=== PATIENT | female | born 1960 | race Caucasian/White ===

== ENCOUNTER 2019-02-22 13:21 | Outpatient (REF) | payer OTHER, SELFPAY ==
--- NOTE | 2019-02-22 10:30 | PAPFT_PTH ---
PATIENT: Cherelle Cid LOC: NCN #:[id number] AGE/SX: 58/F ROOM: RE02/22/[address]: Leidy Aleman V : 1960 BED: DIS: 02/22/2019 SPEC #: [id number] RECD: 02/25/19 12:05 STATUS: SIMEON REFalvia #: [id number] MACIE: 02/22/19 10:[address]: Leidy Aleman V DEPT: [facility] Cytology RECD BY: Sarina Montenegro Tissues: 1 - CX/ENDOCX FOR PAP SMEARS Procedures: PAP THIN PREP/UVM Screening HPV DNA PROBE Comments: [id number]
== END 2019-02-22 13:41 ==
LOC: NCHCN 13:21
PROVIDERS: PCP Family Medicine; Visit Provider Family Medicine
DX: Z12.4 Encounter for screening for malignant neoplasm of cervix (principal); Z11.51 Encounter for screening for human papillomavirus (HPV); Z01.419 Encounter for gynecological examination (general) (routine) without abnormal findings
CPT/HCPCS: 88142; 87624

== ENCOUNTER 2019-02-26 01:11 | Outpatient (CLI) | payer OTHER, SELFPAY ==
--- NOTE | 2019-02-26 11:14 | DI.MAMMO_ITS ---
EXAM: MG MAMMO SCREENING CLINICAL HISTORY: SCREENING, Z12.31, [facility], Z00.00 TECHNIQUE: Mammograms were interpreted according to the usual protocol including computer analysis w [employer] CAD system, tomosynthesis and C-view imaging. COMPARISON: [id number] FINDINGS: The breasts are composed of heterogeneously dense tissue, which may obscure small masses, breast dens ity category C. There are no dominant masses or microcalcifications. There is no significant interva l change in comparison with the previous examinations. IMPRESSION: Category 1, negative mammogram. Yearly screening mammography is recommended. BI-RADS Cat 1 - Negative Breast Density - Category C - Heterogeneously dense
--- NOTE | 2019-02-26 11:39 | DI.RAD_ITS ---
EXAM: XR CERVICAL SPINE COMP 4-5V INDICATION: CERVICAGLIA, M54.2, HEADACHE, R51. COMPARISON: No exams were available for comparison TECHNIQUE: 2D digital imaging was performed. FINDINGS: The C2-3, C3-4 and C4-5 discs are well maintained. There is moderate loss of disc height and endplat e osteophytes at C 5-6. The C6-7 disc space is well maintained. There is some facet joint spurring as well as uncovertebral joint spurring causing neural foraminal narrowing on the left at C5-6 and on the right at C3-4, C5-6 and C6-7. There is some straightening of the normal cervical lordosis secon javid to degenerative changes. The airway appears intact. IMPRESSION: There are degenerative changes greatest at its C5-6 causing bilateral neural foraminal narrowing.
== END 2019-02-26 01:31 ==
PROVIDERS: PCP Family Medicine; Visit Provider Family Medicine
DX: M54.2 Cervicalgia (principal); R51 Headache; M50.322 Other cervical disc degeneration at C5-C6 level; Z12.31 Encounter for screening mammogram for malignant neoplasm of breast; Z00.00 Encounter for general adult medical examination without abnormal findings
CPT/HCPCS: 77063; 77067; 72050

== ENCOUNTER 2020-02-27 12:55 | Outpatient (REF) | payer OTHER, SELFPAY ==
--- NOTE | 2020-02-27 08:45 | PAPFT_PTH ---
PATIENT: [facility]here[facility]id [id number] AGE/SX: 59/F ROOM: RE02/27/[address]: Leidy Aleman V : 1960 BED: DIS: 02/27/2020 SPEC #: [id number] RECD: 02/27/20 18:24 STATUS: SIMEON REQ #: [id number] MACIE: 02/27/20 08:[address]: Leidy Aleman V DEPT: [facility] Cytology RECD BY: Rubia Rangel Tissues: 1 - CX/ENDOCX FOR PAP SMEARS Procedures: PAP THIN PREP/UVM Screening HPV DNA PROBE Comments: [id number] ([id number] [facility])
[2020-02-27 20:17] LABS: Calculated LDL 138 mg/dL (<100); Cholesterol 206 mg/dL (<200); Glucose 80 mg/dL (74-106); HDL Cholesterol 48 mg/dL (40-60); Triglyceride 104 mg/dL (<150)
== END 2020-02-27 13:15 ==
LOC: NCHCN 12:55
PROVIDERS: PCP Family Medicine; Visit Provider Family Medicine
DX: Z00.00 Encounter for general adult medical examination without abnormal findings (principal); Z13.220 Encounter for screening for lipoid disorders; Z13.1 Encounter for screening for diabetes mellitus; Z12.4 Encounter for screening for malignant neoplasm of cervix; Z11.51 Encounter for screening for human papillomavirus (HPV)
CPT/HCPCS: 80061; 82947; 88142; 87624

== ENCOUNTER → 2021-07-27 00:39 | Outpatient (CLI) | payer OTHER, SELFPAY ==
--- NOTE | 2021-07-27 07:30 | DI.MAMMO_ITS ---
Exam(s) MAMMO SCREENING EXAM: MAMMO SCREENING CLINICAL HISTORY: SCREENING, Z12.31. TECHNIQUE: Bilateral full field digital CC and MLO mammographic images were obtained with 3D tomosyn thesis and utilizing computer aided detection (CAD). COMPARISON: Prior mammograms were reviewed, the most recent being February 2019. FINDINGS: The fibroglandular tissue pattern is again noted be moderately dense, this somewhat decreasing the se nsitivity of the mammogram for finding hidden underlying lesions. Asymmetric density medially in the right breast exhibits minimal change from prior studies. In addit ion, asymmetric density in the left breast best seen on the MLO view also appears unchanged from prio r mammograms dating back to at least 2011. There are no new spiculated masses nor malignant appearing microcalcification groups. There is no significant architectural distortion nor skin thickening-retraction. IMPRESSION: Dense bilateral fibroglandular tissue. Stable benign-appearing findings. No obvious radiographic ev idence of malignancy. BI-RADS Category 2 - Benign Findings Breast Density - Category C - Heterogeneously dense Breast density Category C or D implies that the patient has dense breast tissue. Dense breast tissue can make it harder to find cancer on a mammogram. Dense breast tissue is also associated with an incr eased risk of breast cancer. This information about the result of the mammogram report was provided to the patient to raise their awareness. Use this report when you speak with the patient about their risks for breast cancer, which includes their family history. At that time, you may recommend additional screening tests (Ultrasoun d or MRI) as these tests may add significant information. A negative radiographic report should not delay biopsy if a dominant or clinically suspicious mass is present. Up to ten percent of cancers are not identified on mammography. A negative report may reinforce clinical impression. Adenosis and dense breasts may obscure an underlying neoplasm. False positive reports average 6 to 10%. Patient will receive a letter notifying them of these results.
== END ==
PROVIDERS: PCP Family Medicine; Visit Provider Family Medicine
DX: Z12.31 Encounter for screening mammogram for malignant neoplasm of breast (principal); N60.81 Other benign mammary dysplasias of right breast; N60.82 Other benign mammary dysplasias of left breast
CPT/HCPCS: 77063; 77067

== ENCOUNTER 2021-09-17 06:05 | Emergency (ER) | payer OTHER, SELFPAY ==
[2021-09-17 06:08] VITALS: BP 137/75; PULSE 86; RESP 18; TEMP 36.6; O2SAT 100
--- NOTE | 2021-09-17 06:56 | ED.GENADUL_ITS ---
Discharge Plan Disposition Patient Disposition: STILL A PATIENT Condition: Serious Discharge Details Chief Complaint: FlankPain Clinical Impression: Acute left flank pain Primary Care Provider: Leidy Aleman V ED Provider: Constantin Goldberg Home Meds and New Rx's Prescriptions: No Action No Known Home Meds Medical Decision Making 700 --61-year-old female with history of remote renal stone as a child here with left flank pain that started yesterday afternoon and has persisted. Patient does have mild left CVA tenderness. She has no urinary symptoms. Consider renal stone versus pyelonephritis. Will obtain urinalysis and plan for likely CT of the abdomen and pelvis. I offered analgesic and patient declined. -- Urinalysis reviewed and trace hematuria noted. Please obtain CT of the abdomen pelvis to assess for acute surgical pathology including obstructing stone. HPI General Mode of arrival: ambulatory . Date/Time Provider Initiated Documentation: 09/17/21 06:07 . Limitations to Documentation: no limitations . Information obtained by: patient . HPI Narrative: 61-year-old female presents with chief complaint of left flank pain. Patient notes left flank pain started around 5 PM yesterday. Pain has persisted and was moderate to severe last night. She had difficulty sleeping. Pain feels like an ache. Patient denies associated dysuria or hematuria. She has had a small kidney stone as a child with no recurrence. Patient does not recall any injury. Related Data Home Medications Medication Instructions Recorded Confirmed Unknown [No Known Home Meds] 09/17/21 09/17/21 Allergies Allergy/AdvReac Type Severity Reaction Status Date / Time No Known Drug Allergies Allergy Unverified 09/17/21 06:19 General Stated Complaint: FlankPain IMTIAZ: 3 Review of Systems All systems reviewed & are unremarkable except as noted in HPI and below Constitutional Constitutional: Denies fever(s) Genitourinary Genitourinary: Reports as per HPI PFSH All Active Problems (Updated 09/17/21 @ 07:22 by Constantin Goldberg MD) Acute left flank pain (Acute) Family History Other Family history of stroke Parkinson's disease Social History Smoking/Tobacco Use Status: Never Smoking risk assessment performed?: Yes Alcohol Intake: current Alcohol Intake frequency: a few times a month Drug use: Never Exam Const General: cooperative and no acute distress HENMT Mouth: moist mucous membranes Eyes Conjunctivae: normal conjunctivae Sclera: normal sclerae Neck Neck: trachea midline and supple Resp Auscultation: clear to auscultation bilaterally, no rales, no rhonchi and no wheezes Cardio Rate: regular rate and not tachycardic Rhythm: regular rhythm GI Palpation: soft, not firm, no guarding, no masses, not rigid and nontender Back/Spine/Pelvis Back: CVA tenderness (left) Thoracic/Lumbar Spine: No paraspinal tenderness, No thoracic spinal tenderness and No lumbar spinal tenderness Skin General skin exam: no rashes or lesions noted Neuro General: patient alert, patient awake and tone normal Extrem General: no edema Psych Mental Status: mental status grossly normal Course Vital Signs Vital signs: Vital Signs Temperature 36.6 C 09/17/21 06:08 Pulse 86 09/17/21 06:08 Respiratory Rate 18 09/17/21 06:08 Blood Pressure 137/75 09/17/21 06:08 Pulse Oximetry 100 09/17/21 06:08 Temperature 36.6 C 09/17/21 06:08 Temperature Source Temporal Artery Scan 09/17/21 06:08 Pulse 86 09/17/21 06:08 Respiratory Rate 18 09/17/21 06:08 Respiratory Effort 09/17/21 06:27 Blood Pressure 137/75 09/17/21 06:08 Pulse Oximetry 100 09/17/21 06:08 Oxygen Delivery Method Room Air 09/17/21 06:08 Oxygen Flow Rate 0 09/17/21 06:08 Pain Level 7 09/17/21 06:08
[2021-09-17 07:02] LABS: Bilirubin Negative (Negative); Blood Trace-intact (Negative); Clarity Clear (Clear); Glucose Negative (Negative); Ketones Negative (Negative); Leukocyte Esterase Small (Negative); Nitrite Negative (Negative); Specific Gravity >= 1.030 (1.005-1.025); Urobilinogen 0.2 EU/dL (Up TO 0.2)
[2021-09-17 07:10] LABS: RBC 0-2 HPF (0-2)
[2021-09-17 07:11] LABS: Bacteria Rare HPF (Negative); C & S Indicated? Yes; Casts Negative LPF (Negative); Crystals Negative HPF (Negative); Epithelial Cells Few HPF (Negative); Mucus Negative (Negative)
[2021-09-17] MEDS: Ibuprofen 600 MG TAB PO (07:28)
--- NOTE | 2021-09-17 07:36 | DI.CT_ITS ---
Exam(s) CT RENAL COLIC WO EXAM: CT RENAL COLIC WO CLINICAL HISTORY: left flank pain and cva tenderness. TECHNIQUE: Imaging Protocol: Axial computed tomography images with coronal and sagittal reformatted images were created and reviewed. COMPARISON: No exams were available for comparison FINDINGS: ABDOMEN: Lung Bases: Normal where visualized. Liver: Normal density. No measurable mass. Gallbladder and biliary tract: No radiodense calculus or biliary ductal dilation. Pancreas: Normal density, no abnormal calcifications or inflammatory process. Spleen: Normal. Kidneys: Normal size, contour and axis.No radiodense stones or obstructive uropathy. There is a 4 mm fat density lesion in the midpole of the right kidney most consistent with a angiomyolipoma. Adrenal glands: No mass is seen. Lymph nodes: There are mildly prominent lymph nodes seen in the mesentery with haziness in the surrou nding fat. Abdominal Aorta: Abdominal portion non-dilated. Atherosclerosis. PELVIS: Bladder:Symmetric distention, no gross wall thickening. Bowel: No obstruction or bowel wall thickening. No evidence of appendicitis. Peritoneal cavity: No ascites, collection or mesenteric inflammatory response. No free air. Reproductive organs: Within normal limits. Bones: Within normal limits. Soft Tissues: There is a small fat containing umbilical hernia. There is a fat density 9.2 cm x 3.1 cm mass in the left anterior abdominal wall consistent with a lipoma. IMPRESSION: 1. No evidence of nephrolithiasis or hydronephrosis. 2. Findings of haziness of the mesentery with mildly prominent lymph nodes. This can be seen with a local a infectious or inflammatory process. A neoplastic process cannot be excluded. Follow-up exam ination in 3-4 months is suggested for re-evaluation. RADIATION DOSE DELIVERED: 878.34mGy.cm Total DLP DATA REPOSITORY: All CT scans at this facility are submitted to the National Radiology Data Registry (NRDR) Dose Index Registry (DIR) with the [employer] (ACR). RADIATION OPTIMIZATION: All CT scans at this facility use at least one of these dose optimization te chniques: automated exposure control; mA and/or kV adjustment per patient size (includes targeted exa ms where dose is matched to clinical indication); or iterative reconstruction.
--- NOTE | 2021-09-17 08:39 | DI.VRAD_ITS ---
PROCEDURE INFORMATION: Exam: CT Abdomen And Pelvis Without Contrast Exam date and time: 09/17/2021 7:32 AM Age: 61 years old Clinical indication: Abdominal pain; Patient HX: Left flank pain and CVA tenderness TECHNIQUE: Imaging protocol: Computed tomography of the abdomen and pelvis without contrast. Radiation optimization: All CT scans at this facility use at least one of these dose optimization techniques: automated exposure control; mA and/or kV adjustment per patient size (includes targeted exams where dose is matched to clinical indication); or iterative reconstruction. COMPARISON: No relevant prior studies available. FINDINGS: Lungs: Visualized lung bases are clear. No pleural effusions. Liver: The superior aspect of the liver is excluded from the field of view on this study performed for evaluation of renal colic. The unenhanced liver is unremarkable as visualized. Gallbladder and bile ducts: Unremarkable. No calcified gallstones. No intrahepatic or extrahepatic biliary ductal dilation. Pancreas: Unremarkable. Spleen: Unremarkable. The spleen is normal in size. Adrenal glands: Unremarkable. Kidneys and ureters: There is no hydronephrosis or hydroureter. No calcifications are identified in the kidneys or ureters. 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 Stomach and bowel: The stomach is nondilated. The small and large bowel are normal in caliber, without mural thickening. Appendix: A nondilated retrocecal appendix is identified. Intraperitoneal space: No ascites, fluid collection, or pneumoperitoneum. Retroperitoneal space: Unremarkable. No retroperitoneal collection or mass. Vasculature: Mild atherosclerotic vascular calcifications. Normal caliber abdominal aorta. Lymph nodes: There are multiple asymmetrically prominent (though not pathologically enlarged) mesenteric lymph nodes in the left hemiabdomen, with diffuse mild haziness of the surrounding mesenteric fat which extends into the root of the mesentery. While nonspecific, these findings are most typically secondary to an underlying regional infectious or inflammatory process. This gerardo mesentery appearance can be an early manifestation of a neoplastic process, however. Urinary bladder: Unremarkable. No intraluminal calcifications. Reproductive: Unremarkable as visualized. Bones/joints: Degenerative changes. No suspicious osseous lesions. Soft tissues: 6.7 cm CC x 3 cm AP x 9 cm TRV subcutaneous lipoma in the left upper quadrant abdominal wall. Tiny fat-containing umbilical hernia. IMPRESSION: 1. No evidence of urolithiasis or obstructive uropathy. 2. Gerardo mesentery, with multiple asymmetrically prominent mesenteric lymph nodes in the left hemiabdomen and surrounding haziness of the mesenteric fat. While nonspecific, this appearance is most typically secondary to an underlying regional infectious or inflammatory process. Gerardo mesentery can be an early manifestation of a neoplastic process, however, and follow-up CT (i.e., 3-4 months) is recommended to ensure stability or resolution. 3. Additional incidental/nonemergent findings are discussed in the body of the report. Dictated and Authenticated by: Jessy Gomez MD. Ordering:MEERA Killian MD
--- NOTE | 2021-09-17 09:13 | W.EDPROG ---
Date of service: 09/17/21 Time of Service: 09:13 Medical Decision Making 9: 12 patient resting comfortably no acute distress. No evidence of kidney stone. Incidental mesenteric findings as described on CT. As well as mildly enlarged lymph nodes intra-abdominally. Counseled patient regarding need for close follow-up regarding the CT findings. No definitive UTI, patient does not have any dysuria urinary frequency or foul-smelling urine. No nausea vomiting or chills. Counseled extensively regarding signs that would alert her to come back to the emergency department. We will follow-up with her primary care physician regarding incidental findings on CT. Sign Out Sign Out Data: Sign Out Comment: Follow-up on CT of the abdomen pelvis and reassess for disposition. Last updated by Constantin Goldberg MD at 09/17/21 07:24 Discharge Plan Disposition Patient Disposition: HOME Condition: Improving Discharge Details Clinical Impression: Acute left flank pain, Lymphadenopathy, Abdominal pain Primary Care Provider: Leidy Aleman V ED Provider: Roddy Hall Home Meds and New Rx's Prescriptions: No Action No Known Home Meds Discharge Instructions Instructions: Abdominal Pain (ED) Additional Instructions: Please follow-up with your primary care physician regarding the findings on your CT scan which showed enlarged lymph nodes and inflammation of your mesentery. Please return to the emergency department if you have any worsening abdominal pain, nausea vomiting chills urinary symptoms or other abnormal symptoms.
== END 2021-09-17 09:36 | disposition home or self-care (01) ==
PROVIDERS: Student in an Organized Health Care Education/Training Program; Emergency Provider Emergency Medicine; PCP Family Medicine
DX: R10.9 Unspecified abdominal pain (principal); R59.0 Localized enlarged lymph nodes; Z87.442 Personal history of urinary calculi
CPT/HCPCS: 99284; 74176; 81003; 81015; 87086; 99283

== ENCOUNTER 2021-09-24 09:18 | Outpatient (REF) | payer OTHER, SELFPAY ==
[2021-09-24 14:55] LABS: Abs Immature Grans 0.02 10^3/uL (0.0-0.06); Absolute Basophil Count 0.02 10^3/uL (0.0-0.2); Absolute Eosinophil Count 0.11 10^3/uL (0.0-0.7); Absolute Lymphocyte Count 1.89 10^3/uL (1.2-3.4); Absolute Monocyte Count 0.36 10^3/uL (0.1-0.8); Absolute Neutrophil Count 3.81 10^3/uL (1.2-6.7); Basophils % 0.3; Eosinophils % 1.8; HCT 42.9 % (36.0-46.0); HGB 13.8 g/dL (11.2-15.7); Immature Grans % 0.3; Lymphocytes % 30.4; MCH 28.5 pg (27.0-33.0); MCHC 32.2 % (32.0-36.0); MCV 89 fL (80-95); MPV 10.6 fL (8.0-11.0); Monocytes % 5.8; Neutrophils % 61.4; Platelet Count 258 10^3/uL (130-400); RBC 4.84 10^6/uL (3.93-5.22); RDW-SD 39.1 fL; WBC 6.21 10^3/uL (4.4-10.8)
[2021-09-24 15:10] LABS: ESR 5 mm/hr (0-30)
[2021-09-26 09:35] LABS: Anaplasma phagocytophilum Negative (Negative); B. miyamotoi PCR Negative (Negative); Babesia divergens/MO-1 Negative (Negative); Babesia duncani Negative (Negative); Babesia microti Negative (Negative); Ehrlichia chaffeensis Negative (Negative); Ehrlichia ewingii/canis Negative (Negative); Ehrlichia muris eauclairensis Negative (Negative)
[2021-09-28 10:45] LABS: Lyme Ab w Rflx to Lyme Confirm Equivocal (Negative)
[2021-09-28 12:24] LABS: Lyme IgG Ab Negative (Negative); Lyme IgM Ab Negative (Negative)
== END 2021-09-24 09:19 | disposition home or self-care (01) ==
LOC: NCHCN 09:18
PROVIDERS: PCP Family Medicine; Visit Provider Nurse Practitioner Family
DX: I88.0 Nonspecific mesenteric lymphadenitis (principal); R10.9 Unspecified abdominal pain; M79.10 Myalgia, unspecified site
CPT/HCPCS: 85652; 86617; 87798; 85025; 86618; 87086

== ENCOUNTER 2021-10-26 19:31 | Outpatient (REF) | payer OTHER, SELFPAY ==
[2021-10-27 10:47] LABS: Lyme Ab w Rflx to Lyme Confirm Negative (Negative)
== END 2021-10-26 19:32 | disposition home or self-care (01) ==
LOC: NCHCN 19:31
PROVIDERS: PCP Family Medicine; Visit Provider Family Medicine
DX: A69.20 Lyme disease, unspecified (principal)
CPT/HCPCS: 86618

== ENCOUNTER → 2023-08-01 01:57 | Outpatient (CLI) | payer OTHER, SELFPAY ==
--- NOTE | 2023-08-01 | DI.MAMMO_ITS ---
Exam(s) MAMMO SCREENING EXAM: MAMMO SCREENING CLINICAL HISTORY: Z12.31 Screening mammogram for malignant neoplasm of breast. TECHNIQUE: Bilateral full field digital CC and MLO mammographic images were obtained with 3D tomosyn thesis and utilizing computer aided detection (CAD). COMPARISON: Prior mammograms were reviewed. FINDINGS: There has been no significant change in the appearance and distribution of the fibroglandular tissue. There are no CAD designations. There are no new spiculated masses nor malignant appearing microcalcification groups. No new right breast findings. In the left breast asymmetric densities including a E 7 by 4 mm nodula r density seen superiorly on the MLO view is unchanged from prior mammograms and therefore benign. There is no significant architectural distortion nor skin thickening-retraction. IMPRESSION: Stable benign findings. No radiographic evidence of malignancy. BI-RADS Category 2 - Benign Findings Breast Density - Category C - Heterogeneously dense Breast density Category C or D implies that the patient has dense breast tissue. Dense breast tissue can make it harder to find cancer on a mammogram. Dense breast tissue is also associated with an incr eased risk of breast cancer. This information about the result of the mammogram report was provided to the patient to raise their awareness. Use this report when you speak with the patient about their risks for breast cancer, which includes their family history. At that time, you may recommend additional screening tests (Ultrasoun d or MRI) as these tests may add significant information. A negative radiographic report should not delay biopsy if a dominant or clinically suspicious mass is present. Up to ten percent of cancers are not identified on mammography. A negative report may reinforce clinical impression. Adenosis and dense breasts may obscure an underlying neoplasm. False positive reports average 6 to 10%. Patient will receive a letter notifying them of these results.
== END ==
PROVIDERS: PCP Family Medicine; Visit Provider Family Medicine
DX: Z12.31 Encounter for screening mammogram for malignant neoplasm of breast (principal)
CPT/HCPCS: 77063; 77067

== ENCOUNTER 2024-02-20 15:16 | Outpatient (CLI) | payer OTHER, SELFPAY ==
--- NOTE | 2024-02-20 09:00 | DI.RAD_ITS ---
Exam(s) XR SHOULDER RT COMPLETE 2+V EXAM: XR SHOULDER RT COMPLETE 2+V CLINICAL HISTORY: RIGHT SHOULDER PAIN. TECHNIQUE: 2D digital imaging was performed. Two views. COMPARISON: No exams were available for comparison FINDINGS: BONES: No acute fracture is present. No bony destructive lesion is seen. Spurring at greater tuberos ity peer JOINTS: No dislocation present. Mild spurring at AC joint and undersurface of acromion. Glenohumera l joint space is maintained. Mild spurring is noted at the glenoid. SOFT TISSUE: Normal. IMPRESSION: Mild degenerative changes. DATA REPOSITORY: RADIATION DOSE DELIVERED:
== END 2024-02-20 15:17 | disposition home or self-care (01) ==
LOC: DIORS 15:16
PROVIDERS: PCP Family Medicine; Visit Provider Student in an Organized Health Care Education/Training Program
DX: M25.511 Pain in right shoulder (principal)
CPT/HCPCS: 73030

== ENCOUNTER 2024-03-08 10:45 | Outpatient (CLI) | payer OTHER, SELFPAY ==
--- NOTE | 2024-03-08 08:30 | DI.MRI_ITS ---
Exam(s) MR UPPER JOINT RT WO EXAM: MR UPPER JOINT RT WO CLINICAL HISTORY: R SHOULDER PAIN, M75.101-Rt rotator cuff tear. TECHNIQUE: Multiplanar multisequence MRI was performed. COMPARISON: CR XR SHOULDER RT COMPLETE 2+V from 02/20/2024 FINDINGS: There is mild motion artifact. BONES: There is no fracture or contusion pattern. There is a small spur at the undersurface of the ac romion. JOINTS: Minimal degenerative changes are seen at the acromioclavicular joint. The glenohumeral joint is normal. TENDONS: Supraspinatus: There is a full-thickness tear of the supraspinatus tendon near its insertion site ant eriorly. There is underlying tendinosis present. Infraspinatus: Unremarkable. Subscapularis: Unremarkable. Teres Minor: Unremarkable. Biceps and [place]: Unremarkable. MUSCLES: Unremarkable. GLENOID LABRUM: Unremarkable on this noncontrast examination. SOFT TISSUES: Unremarkable. LIGAMENTS: Unremarkable. OTHER: There is fluid seen in the subacromial subdeltoid bursa consistent with the patient's full-thi ckness tear. IMPRESSION: 1. Small full-thickness tear of the supraspinatus tendon near its insertion site anteriorly. 2. Small spur at the undersurface of the acromion. DATA REPOSITORY:
== END 2024-03-08 11:05 ==
LOC: DI 10:50
PROVIDERS: PCP Family Medicine; Visit Provider Student in an Organized Health Care Education/Training Program
DX: M75.111 Incomplete rotator cuff tear or rupture of right shoulder, not specified as traumatic (principal)
CPT/HCPCS: 73221

== ENCOUNTER 2024-03-29 06:13 | Day surgery (SDC) | payer OTHER, SELFPAY ==
[2024-03-29] VITALS (32 sets, daily range): BP systolic 109–163; BP diastolic 62–94; PULSE 64–87; RESP 13–22; TEMP 36–36.7; O2SAT 96–99; BMI 26.5
[2024-03-29] MEDS: Normal Saline 1,000 ML 30 ML IV (07:00)
--- NOTE | 2024-03-29 07:06 | PDOC.DSDIS_ITS ---
Date of service: 03/29/24 Discharge Plan Disposition Patient Disposition: Home Condition: Stable Discharge Details Attending Provider: Augustus Cardoza Primary Care Provider: Leidy Aleman V Home Meds and New Rx's Prescriptions: New naproxen 250 mg tablet 250 - 500 mg PO BID PRN (Reason: moderate pain and swelling) Qty: 40 0RF oxycodone 5 mg tablet 5 - 10 mg PO .q4-6h MDD 30 mg PRN (Reason: severe pain) Qty: 18 0RF Continued cholecalciferol (vitamin D3) 25 mcg (1,000 unit) capsule 25 mcg PO DAILY ascorbic acid (vitamin C) 1,000 mg capsule 1 g PO DAILY Discharge Instructions Additional Instructions: Surgery: Right shoulder arthroscopy with rotator cuff repair (medial trans- tendinous supraspinatus), biceps tenodesis, extensive debridement, and subacromial decompression. Activity: For 6 weeks, you should keep your arm at your side in a neutral position at all times except for physical therapy. Do not try to lift or raise your arm using your own muscles. You should use the sling whenever you are out of the house. At home it is best to remove the sling and rest the arm on a pillow at your side or support the operative side with your other hand. You may allow the arm to dangle at your side. A physical therapy prescription will be sent electronically to begin in about 3 weeks. CONSERVATIVE protocol. Prescriptions: Naproxen 250 mg take 1-2 every 12 hours with a meal as needed for moderate pain Oxycodone 5 mg take 1-2 every 4-6 hours as needed for severe pain You may use tunr-fje-gzydbfi Tylenol (acetaminophen) as needed for mild pain. These pain medications may be taken all at once or in different combinations as needed. Also, recommend Colace (docusate) as a stool softener as surgery and pain medicine cause constipation. You may try rmek-otf-fhsigun diphenhydramine (Benadryl) 25-50 mg nightly as a sleep aid Dressings: Remove shoulder bandage after 3 days. Leave the sticky Steri-Strips in place until they fall off or remove them after you shower. Cover the incisions with Band-Aids or leave them open to air. You may shower after 5 days. Follow-up: 10-[address] Cardoza You may take off the leg compression stockings this evening at home. You may also leave them on a few days longer if you have a history of leg swelling or edema. Let us know right away if you develop any redness, drainage, fevers, chest pain, or trouble breathing. Do not drink alcohol or drive for at least 24 hours after anesthesia. Please call the office during business hours with any questions or concerns. Discharge Orders Discharge Orders: Discharge Order (Routine); Ordered 03/29/24 Ordered By: Sheela Cabezas DS: Diagnosis Discharge Diagnosis (1) Rotator cuff tear, right: Status: Acute (2) Tendonitis of long head of biceps brachii of right shoulder: Status: Acute (3) Chondromalacia of right shoulder: Status: Acute
--- NOTE | 2024-03-29 07:16 | W.PM.OP ---
Operative Note Operative Note PRE-OP DIAGNOSIS: Right: 1. Rotator cuff tear 2. Bursitis 3. Impingement POST-OP DIAGNOSIS: same Right: 1. Rotator cuff tear 2. Intra-articular biceps partial tearing 3. Shoulder stiffness PROCEDURE: Right: 1. Rotator cuff repair, CPT# 86066. This involved repair of the supraspinatus using sutures and anchors to reapposed the ends of the tendon and secure it to the proximal humerus 2. Arthroscopic biceps tenodesis, CPT# 48865. This involved arthroscopically suturing and reattaching the long head of the biceps tendon to the proximal humerus at the superior margin of the bicipital groove with a screw at the correct tension. 3. Extensive debridement, CPT# 86209. This involved using arthroscopic hand instruments, power instruments, and radiofrequency instruments to release the long head of the biceps tendon and debride areas of labral tearing, synovitis, release anterior capsule, and debride chondromalacia about the central glenoid working within the glenohumeral joint anteriorly, superiorly and posteriorly. 4. Subacromial decompression with partial acromioplasty, CPT# 10564. This involved using arthroscopic power instruments and a radiofrequency wand to complete a bursectomy and smooth the undersurface of the acromion. The case management assistant was medically required in order to help assist in techniques above, which require positioning the arm, holding the arthroscope, and manipulating multiple instruments and sutures at the same time. This cannot be done without the help of an experienced case management assistant. SURGEON: Augustus Cardoza TAPPER SUPERVISOR: Sheela Cabezas ANESTHESIA TYPE: Local By Surgeon, General LMA/ETT and Primary Nerve Block Refer to Anesthesia Record ESTIMATED BLOOD LOSS: 5 PATHOLOGY: none sent COMPLICATIONS: None Patient was transported to: PACU Patient's condition: stable Implants: Arthrex: 4.75mm SwiveLocks x 3 Indications: The patient was diagnosed with the above conditions and appropriately indicated for surgical intervention. Please see complete medical record for details. Findings: Exam under anesthesia: Mildly limited forward elevation and abduction external rotation, readily released and restored simply on exam. No instability. Glenohumeral joint: Obvious anterior inferior capsular synovitis and hemorrhage from mild release. Thickened anterior capsule [facility] L was some adhesions to the subscapularis. Subscapularis otherwise completely intact. Full-thickness complete supraspinatus medial transtendinous tear with delaminated layers and thickening tendinosis centrally and posteriorly. Moderate central glenoid chondromalacia. Mild partial tearing intra-articular biceps which appeared to abrade the superior aspect of the bicipital groove and mild degenerative superior labrum SLAP tear. Subacromial space: Moderate bursitis, mild undersurface acromial narrowing, obvious complete supraspinatus delaminated medial tendon tearing. Procedure Description: In the operating room, general anesthesia was induced. Bilateral shoulders were examined. The patient was positioned in the beachchair position. All bony prominences were well-padded. Preoperative antibiotics were administered. The shoulder was prepped and draped in the usual sterile fashion. The correct patient, procedure, and side of the procedure were all verified prior to incision. Starting through the posterior portal a standard complete diagnostic arthroscopy was performed of the glenohumeral joint including inspection of the long head of the biceps, anterior and superior labrum, subscapularis tendon, supraspinatus and infraspinatus tendons, and axillary recess. The glenoid and humeral head cartilage as well as the posterior labrum were inspected from an anterior viewing portal. An anterior superior lateral portal was made and Brittany passport inserted working through the full-thickness supraspinatus tear. Significant findings and interventions noted above. Of note, the anterior capsule and [facility] were released using scissors debrided with a shaver and finally the radiofrequency wand to complete release for range of motion and remove adhesions from the subscapularis and anterior space. Anterior to inferior labrum and central glenoid was debrided of the fraying tearing and lightly chondromalacia loose cartilage edges. The intra-articular biceps segment was inspected and probed and showed partial tearing in combination with a degenerative SLAP tear decision was made to proceed with biceps tenodesis. An all-arthroscopic suprapectoral biceps tenodesis was performed through an anterior portal using a Loop N Tack method with a SutureTape FiberLink cinched around and through the tendon. The biceps was tenotomized from the labrum and fixated with a suture anchor at the superior margin of the bicipital groove. The extra knotless repair suture was then passed around the biceps tendon stump, shuttled back through the anchor and tension adding nice additional security to the repair, which was tested and stable. The end of the tendon was then ablated. Starting through the posterior portal, the arthroscope was directed into the subacromial space. A lateral 50 yard line lateral portal was created and Brittany cannula inserted. A combination of power instruments and a radiofrequency ablator were used to debride bursitis anteriorly, posteriorly, and laterally as well as expose and smooth bone spurring on the undersurface of the acromion. The coracoacromial ligament was partially released. The bursectomy was completed viewing laterally and working from posteriorly and the rotator cuff was thoroughly inspected with findings noted above. The supraspinatus tendon tear was largely medial to the greater tuberosity footprint as expected given the imaging. There was significant tendon remnant across covering the greater tuberosity. Viewing through the joint and working through subacromial the central portion of the tear was debrided of degenerative frayed various layers to a more stable appropriate tissue margin for repair. A small amount of humeral head cartilage and greater tuberosity cartilage was removed to expose some greater tuberosity bone healing under the tear zone given the high risk tear pattern. Various repair configurations were considered: [id number] tendon repair to the intact remnant was not strong enough anteriorly and the large tendon remnant was fairly healthy and thompson centrally to posteriorly so taking it all down was not a good option either. Instead there was nice reapposition of the medial to lateral remnant tendon edges by simply bringing the tendon central portion laterally without much tension. The scorpion is used to place an inverted widely spaced horizontal mattress followed by central ripstop suture tape FiberLink and these could be secured to a cleared area on the lateral central proximal humerus past the greater tuberosity drop-off. This also reapposed the more anterior and posterior gaps in the tendon. The undersized punch was used followed by securing the repair sutures and tendon taking care to ensure the best reduction without over tension. There was good tissue reduction and stable repair strength. The smaller Within the tendon more posteriorly was readily repaired [id number] using the 9 degree lasso and suture tape SMC arthroscopic knots. Anteriorly the [id number] was not possible as the lateral remnant thinner tissue could not hold sutures so instead the scorpion was used to place 2 additional suture tape FiberLink's cinched to the free tendon edge and then secured to an additional lateral 4.75 mm SwiveLock anchor. The repair was tested and demonstrated good configuration, excellent re-apposition of tendon edges, and stable through motion. The shoulder was drained of arthroscopic fluid. All portal sites were copiously irrigated. These incisions were closed using 3-0 Monocryl in a buried fashion and then covered with Mastisol, Steri-Strips, Xeroform, dry gauze, and ABDs. The dressings were covered and secured with Medipore tape. The operative extremity was placed into a sling for immobilization. The patient awoke from anesthesia without complication and was transferred to the recovery room in a stable condition. Date of Procedure: 03/29/24
[2024-03-29] MEDS: ceFAZolin 2 GM/50 ML BAG IVPB (07:49)
[2024-03-29] MEDS: TRANEXAMIC ACID/SOD. CHL. 1,000 MG/100 ML BAG 600 MG IVPB (08:04)
--- NOTE | 2024-03-29 08:19 | ANES.PREOP_ITS ---
General Info Date of Service Date Performed: 03/29/24 Height: 5 ft 6.5 in Weight: 75.7 kg Body Mass Index (BMI): 26.5 Surgical Procedure: Operation Date: 03/29/24 07:40 Proposed Procedure Side Surgeon p Shoulder Rotator Cuff Arthroscopic w/Extensive Debridement, Possible Biceps Tenodesis, Subacromial Decompression, Possible Allograft Augmentation Right Augustus Cardoza MD Actual Procedure Side Surgeon p Shoulder Rotator Cuff Arthroscopic w/Extensive Debridement, Possible Biceps Tenodesis, Subacromial Decompression, Possible Allograft Augmentation Right Augustus Cardoza MD Pre-Op Diagnosis Post-Op Diagnosis RTC TEAR RIGHT SHOULDER Meds Allergies and Home Medications Allergies Allergy/AdvReac Type Severity Reaction Status Date / Time No Known Allergies Allergy Verified 03/29/24 06:37 Home Medication ?Medication ?Instructions ?Recorded ascorbic acid (vitamin C) 1,000 mg 1 g PO DAILY 02/20/24 capsule cholecalciferol (vitamin D3) 25 25 mcg PO DAILY 02/20/24 mcg (1,000 unit) capsule Current Visit Medications: Current Medications Generic Name Dose Route Start Last Admin Trade Name Freq PRN Reason Stop Dose Admin Droperidol 0.625 mg 03/29/24 06:40 Droperidol 2.5 Mg/Ml Vial IVP 04/28/24 06:39 DIRECTED PRN Ephedrine Sulfate 0 mg 03/29/24 06:40 Ephedrine 25 Mg/5 Ml Syringe IVP 04/28/24 06:39 DIRECTED PRN Fentanyl 0 mcg 03/29/24 06:40 Fentanyl 100 Mcg/2 Ml Vial IVP 04/28/24 06:39 DIRECTED PRN Hydromorphone HCl 0 mg 03/29/24 06:40 Hydromorphone 1 Mg/Ml Syr IVP 04/28/24 06:39 DIRECTED PRN Cefazolin Sodium/Dextrose 2 gm in 50 mls @ 100 mls/hr 03/29/24 06:00 Ancef Duplex IVPB 04/27/24 23:59 PREOP DONNA Tranexamic Acid/Sodium Chloride 1,000 mg in 100 mls @ 600 mls/hr 03/29/24 06:00 IVPB 04/27/24 23:59 PREOP DONNA Sodium Chloride 1,000 mls @ 30 mls/hr 03/29/24 07:15 03/29/24 07:00 Saline 1000ml Bag IV 04/28/24 07:14 30 mls/hr INFUSION DONNA Administration IV Miscellaneous Supplies 1 each 03/29/24 06:00 Iv Access IV 04/27/24 23:59 DIRECTED DONNA Naloxone HCl 0 mg 03/29/24 06:40 Naloxone 0.4 Mg/Ml Vial IVP 04/28/24 06:39 PRN PRN Oxycodone HCl 0 mg 03/29/24 07:06 Oxycodone 5 Mg Tab PO 04/28/24 07:05 Q3H PRN PRN Pain Sodium Chloride 0 ml 03/29/24 06:00 Normal Saline Flush 10 Ml Syr IV 04/27/24 23:59 PRN PRN Sodium Chloride 0 ml 03/29/24 06:00 Normal Saline 10 Ml Vial IJ 04/27/24 23:59 DIRECTED PRN Sterile Water 0 ml 03/29/24 06:00 Water,Injection,Sterile 10 Ml Vial IJ 04/27/24 23:59 DIRECTED PRN PFSH Active Problems Active Problems: Problem Status Onset Code Rotator cuff tear, right Acute M75.101 Medical History Medical History Comments:: 10+ days ago running nose/cold Surgical History Surgical History Hx of colonoscopy with polypectomy Tobacco Smoking/Tobacco Use Status: Never Alcohol Alcohol Intake: current Alcohol intake frequency: a few times a month Substance Use Substance use: Never Substance use type: does not use Vital Signs and Lab Results Vital Signs Most Recent Vital Signs in EMR: Most Recent Vital Signs Temp Pulse Resp BP Pulse Ox 36.4 C L 79 18 141/75 H 97 03/29/24 07:15 03/29/24 07:15 03/29/24 07:15 03/29/24 07:15 03/29/24 07:15 Lab Results Blood Type / Crossmatch: 2 No Data to Display Complete Blood Count: 2 No Data to Display Complete Metabolic Panel: 2 No Data to Display Liver Function Panel: 2 No Data to Display Coagulation Panel: 2 No Data to Display Cardiac Panel: 2 No Data to Display Arterial Blood Gas: 2 No Data to Display Venous Blood Gas: 2 No Data to Display Pancreas Panel: 2 No Data to Display Thyroid Panel: 2 No Data to Display Infectious Disease: 2 No Data to Display Blood Cultures: 2 No Data to Display Toxicology Panel: 2 No Data to Display Anesthesia Assessment and Plan Anesthesia History Personal History: No History of Anesthesia Complications Family History: No Family History of Anesthesia Complications Exercise Tolerance Exercise Tolerance: Metabolic Equivalents>4 Pertinent Negatives Pertinent Negatives: No Symptoms of GERD, No Major Cardiovascular Symptoms or Complaints, No Major Pulmonary Symptoms or Complaints and No History of CVA/TIA Cardiac & Pulmonary Exam Cardiac Exam: Normal S1/S2 Heart Sounds Pulmonary Exam: Clear Bilateral Breath Sounds Implantable Cardiac Device Does patient have a Pacemaker or an ICD?: No Airway Exam Known Difficult Airway: No Mallampati Class: 3 Mouth Opening: Normal (> 3cm) Thyromental Distance: Less than 3 cm Neck Range of Motion: Full ROM Neck Circumference: Normal Teeth Condition: Loose or Chipped Tooth Numberin 1. chipped ASA Classification ASA Score: ASA 2 Emergency Case?: No NPO Status NPO Status: NPO Clears >2 hours, Solids >8 hours Anesthesia Plan Resuscitation Status: Full Code Anesthesia Technique: General Anesthesia Airway Planned: Endotracheal Tube Pain Management: Surgeon and patient request nerve block Monitors Used: Standard Monitors and SedLine
[2024-03-29] MEDS: EPINEPHrine 10 MG/10 ML ML (08:20)
[2024-03-29] MEDS: Bupivacaine 0.25% Pres-Free W/EPI 30 ML VIAL (08:20)
--- NOTE | 2024-03-29 08:38 | W.ANESNERVE ---
Nerve Block Single Injection Procedure Date and Time Date Performed: 03/29/24 Procedure Start: 07:16 Location Where Procedure Performed Procedure Location: Day Surgery Unit Reason Performed: Postoperative Analgesia Requesting Provider: Augustus Cardoza Timeout Performed Timeout Performed: Yes Monitoring Used ECG, Blood Pressure, SpO2, ETCO2 and See EMR for corresponding vital signs Sterility Sterility: Hand Hygiene, Surgical Cap, Surgical Mask, Sterile Gloves, Eye Protection and Chlorhexidine Sedation Given During Procedure Sedation Given (Indicate Dose Given): Versed IV Dose:: 2mg IVP Patient Mental Status Patient Mental Status: Sedate with meaningful communication Nerve Block 1st Nerve Block: Laterality: Right Block Type: Interscalene Ultrasound Image Saved?: Yes Needle / Catheter Used: 80mm SonoPlex II Local Anesthetic Bolus (Indicate Dose Given): Lidocaine used for local infiltration of skin, Injected in 3-5ml increments after negative blood aspiration, Bupivacaine 0.5% Dose:: 0.5%/10cc (50mg) and Exparel Dose:: 1.33%/10cc (133mg) Additives (Indicate Dose Given): Epinephrine to make 1:200,000 (5mcg/ml) Dose:: 100mcg and Decadron Dose:: 10mg PF Ultrasound: Sterile probe cover and gel used Nerve Stimulator: Not Used Paresthesia: None Procedure Tolerated: No Complications and Patient tolerated well Procedure Outcome: Successful Procedure Comment: SRNA attempted needle pass to nerve plexus in interscalene space. Unable to track needle and redirected. After 2nd attempt, handed off to COMPUTER NUMERICAL CONTROL PROGRAMMER. COMPUTER NUMERICAL CONTROL PROGRAMMER noted with needle placement on image 2 & 3. Injected with 3-5cc and aspiration protocol. Sander Desai, KATHERIN Performed By: Raheem Desai Other (not listed above): MABEL Alexandre
--- NOTE | 2024-03-29 10:38 | W.ANESPOSTOP ---
Postoperative Evaluation Date, Time and Location Date Performed: 03/29/24 Time Performed: 10:38 Patient Location: Day Surgery Unit Vital Signs Most Recent Imported Vital Signs: Most Recent Vital Signs Temp Pulse Resp BP Pulse Ox 36.4 C L 69 16 126/69 97 03/29/24 10:31 03/29/24 10:31 03/29/24 10:31 03/29/24 10:31 03/29/24 10:31 Pain Score Most Recent Pain Score: Most Recent Pain Score Pain Level 2 03/29/24 10:31 Assessment Mental Status: Awake (Alert & Oriented to Patient Baseline) Airway and Respiratory Function: Patent airway with normal (patient baseline) respiratory exam Cardiovascular Function: Hemodynamically Stable Hydration Status: Adequately Hydrated Nausea & Vomiting: No Nausea or Vomiting Pain: Pt. Denies Any Pain Peripheral Nerve Block: Regional nerve block not resolved at time of post operative discharge
== END 2024-03-29 12:30 | disposition home or self-care (01) ==
PROVIDERS: PCP Family Medicine; Visit Provider Student in an Organized Health Care Education/Training Program
PROC: (CPT 29827; principal; 2024-03-29 07:30)
DX: M75.101 Unspecified rotator cuff tear or rupture of right shoulder, not specified as traumatic (principal); M75.41 Impingement syndrome of right shoulder; M75.51 Bursitis of right shoulder; S46.121A Laceration of muscle, fascia and tendon of long head of biceps, right arm, initial encounter; X58.XXXA Exposure to other specified factors, initial encounter
CPT/HCPCS: 29827; 29828; 29823; 29826; 64415; C9290; J0131; J0171; J0665; J0690; J1100; J2003; J2250; J2371; J2405; J2704

== ENCOUNTER 2024-06-06 01:49 | Outpatient (CLI) | payer OTHER, SELFPAY ==
--- NOTE | 2024-06-06 | DI.DEXA_ITS ---
Exam(s) XR DEXA BONE DENSITY W/WO MARIE EXAM: XR DEXA BONE DENSITY W/WO MARIE CLINICAL HISTORY: Asymptomatic postmenopausal state, Z78.0 TECHNIQUE: zumatek C densitometer analysis of left hip, lumbar spine and left forearm. Lat eral survey image of the thoracic and lumbar spine. COMPARISON: No exams were available for comparison FINDINGS: Lateral view of the thoracic and lumbar spine shows no evidence of compression fractures. Bone mineral density measurements of the lumbar spine correspond to a total T-score of -1.2, in the osteopenic range. Bone mineral density measurements of the left hip correspond to a total T-score of -1.0. The femora l neck T-score is -1.1, in the osteopenic range.. Theleft forearm bone mineral density measurements correspond to a T-score of the distal 3rd of -2.2, in the osteopenic range.. IMPRESSION: Osteopenia of the spine, hip and forearm.
== END 2024-06-06 02:09 ==
LOC: DI 01:49
PROVIDERS: PCP Family Medicine; Visit Provider Family Medicine
DX: Z13.820 Encounter for screening for osteoporosis (principal); Z78.0 Asymptomatic menopausal state; M85.89 Other specified disorders of bone density and structure, multiple sites
CPT/HCPCS: 77080

== ENCOUNTER 2025-03-28 12:46 | Outpatient (REF) | payer OTHER, SELFPAY ==
--- NOTE | 2025-03-28 08:45 | PAPFT_PTH ---
PATIENT: Cherelle Cid LOC: [facility]#:[id number] AGE/SX: 64/F ROOM: RE03/28/[address]: Leidy Aleman V : 1960 BED: DIS: 03/28/2025 SPEC #: [id number] RECD: 03/28/25 17:46 STATUS: SIMEON SRIVASTAVA #: [id number] MACIE: 03/28/25 08:[address]: Leidy Aleman V DEPT: [facility] Cytology RECD BY: Rubia Rangel Tissues: 1 - CX/ENDOCX FOR PAP SMEARS Procedures: PAP THIN PREP/UVM Screening HPV DNA PROBE Comments: [id number] (HPV 16 & 18/45)
[2025-03-28 16:11] LABS: Hemoglobin A1C 5.5 % (<5.7)
[2025-03-28 16:16] LABS: TSH (W/Ref FT4) 1.50 uIU/mL (0.55-4.78)
[2025-03-28 16:19] LABS: ALT 22 U/L (10-49); AST 19 U/L (<34); Albumin 4.5 g/dL (3.2-5.0); Alkaline Phosphatase 94 U/L (46-116); Anion Gap 8.7 mmol/L (3-11); BUN 14 mg/dL (9-23); Bilirubin, Total 0.5 mg/dL (0.2-1.2); CO2 29.3 mmol/L (20.0-31.0); Calcium 9.4 mg/dL (8.3-10.6); Chloride 108 mmol/L (98-107); Cholesterol 193 mg/dL (<200); Glucose 111 mg/dL (74-106); HDL Cholesterol 54 mg/dL (>or=50); Potassium 4.0 mmol/L (3.5-5.1); Sodium 146 mmol/L (136-145); Total Protein 7.0 g/dL (5.7-8.2)
== END 2025-03-28 12:47 | disposition home or self-care (01) ==
LOC: NCHCN 12:46
PROVIDERS: PCP Family Medicine; Visit Provider Family Medicine
DX: Z13.220 Encounter for screening for lipoid disorders (principal); Z13.1 Encounter for screening for diabetes mellitus; Z00.00 Encounter for general adult medical examination without abnormal findings; Z12.4 Encounter for screening for malignant neoplasm of cervix
CPT/HCPCS: 80053; 80061; 88142; 83036; 84443; 87624